=== PATIENT | female | born 1960 | race African-American/Black ===

== ENCOUNTER 2020-06-14 10:07 | Emergency (ER) | payer OTHER, SELFPAY ==
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
[2020-06-14 10:16] VITALS: BP 173/94; PULSE 80; RESP 18; TEMP 36.4; O2SAT 98
== END 2020-06-14 11:23 | disposition left against medical advice (07) ==
LOC: ANHED 11:28
PROVIDERS: Emergency Provider Emergency Medicine
DX: M25.561 Pain in right knee (principal)
CPT/HCPCS: 73080; 73564; 99199

== ENCOUNTER 2020-06-15 18:44 | Emergency (ER) | payer OTHER, SELFPAY ==
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
[2020-06-15 18:51] VITALS: BP 133/65; PULSE 80; RESP 18; TEMP 36.8; O2SAT 100
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
[2020-06-15] MEDS: IBUPROFEN 600 MG TABLET PO (19:51)
--- NOTE | 2020-06-15 20:21 | PC.NURSE ---
Patient reports no change in pain level with motrin.
[2020-06-15 20:56] VITALS: BP 141/78; PULSE 76; RESP 16; TEMP 36.6; O2SAT 100
== END 2020-06-15 20:59 | disposition home or self-care (01) ==
LOC: ANHED 19:41
PROVIDERS: Emergency Provider Emergency Medicine
DX: S16.1XXA Strain of muscle, fascia and tendon at neck level, initial encounter (principal); S13.4XXA Sprain of ligaments of cervical spine, initial encounter; V43.62XA Car passenger injured in collision with other type car in traffic accident, initial encounter
CPT/HCPCS: 72125; 73080; 73564; 99199; 99284; A9270